=== PATIENT | male | born 1995 | race Caucasian/White ===

== ENCOUNTER 2017-05-20 00:13 | Emergency (ER) | payer OTHER ==
--- NOTE | 2017-05-20 02:25 | ED ---
Throat Pain/Nasal Congestion - HPI Summary HPI Summary: 21M presents with jaw pain after eating a burger. He states that his jaw occasionally pops. no history of TMJ. no dental pain. no fever or sore throat. pain is ache in nature. ibuprofen makes it better. has worst pain when is chewing. pain has only been for a day. no abdominal pain. states feels that lymph nodes are enlarged. no drooling. - History of Current Complaint Chief Complaint: EDGeneral Time Seen by Provider: 05/20/17 01:27 - Allergies/Home Medications Allergies/Adverse Reactions: Allergies Allergy/AdvReac Type Severity Reaction Status Date / Time No Known Allergies Allergy Verified 05/20/17 00:18 PMH/Surg Hx/FS Hx/Imm Hx Endocrine/Hematology History: Denies: Hx Anticoagulant Therapy Cardiovascular History: Denies: Hx Hypertension Infectious Disease History: No Infectious Disease History: Denies: Traveled Outside the [place] in Last 30 Days - Family History Known Family History: Negative: Cardiac Disease - Social History Alcohol Use: Occasionally Substance Use Type: Reports: Marijuana Substance Use Comment - Amount & Last Used: occasionally Smoking Status (MU): Never Smoked Tobacco Review of Systems Negative: Fever Positive: Other - jaw pain Negative: Chest Pain Negative: Shortness Of Breath All Other Systems Reviewed And Are Negative: Yes Physical Exam Triage Information Reviewed: Yes Vital Signs On Initial Exam: Initial Vitals Temp Pulse Resp BP Pulse Ox 99.0 F 87 12 144/93 100 05/20/17 00:14 05/20/17 00:14 05/20/17 00:14 05/20/17 00:14 05/20/17 00:14 Vital Signs Reviewed: Yes Appearance: Positive: Well-Appearing Skin: Positive: Warm, Dry Head/Face: Positive: Normal Head/Face Inspection Eyes: Positive: Normal, EOMI, DEDE, Conjunctiva Clear ENT: Positive: Normal ENT inspection, Pharynx normal, TMs normal, Other - tenderness over TMJ joint with movement Dental: Negative: Percussion Tenderness @, Gross Decay/Caries @, Dental Fracture @, Abscess @ Neck: Positive: Supple, Nontender, No Lymphadenopathy Respiratory/Lung Sounds: Positive: Clear to Auscultation, Breath Sounds Present Cardiovascular: Positive: Normal, RRR - Amanda Coma Scale Coma Scale Total: 15 Diagnostics - Vital Signs Vital Signs Temp Pulse Resp BP Pulse Ox 05/20/17 00:14 99.0 F 87 12 144/93 100 - Laboratory Lab Statement: Any lab studies that have been ordered have been reviewed, and results considered in the medical decision making process. EENT Course/Dx - Course Course Of Treatment: 21M presents with jaw pain after eating a burger. He states that his jaw occasionally pops. no history of TMJ. no dental pain. no fever or sore throat. pain is ache in nature. ibuprofen makes it better. has worst pain when is chewing. pain has only been for a day. no abdominal pain. states feels that lymph nodes are enlarged which they are not on exam. has pain when open jaw and hold tmj joint. no dental pain. explained symptoms likely due to TMJ. patient understands and agrees with plan. - Differential Diagnoses Differential Diagnoses: Dental Abscess, Dental Caries, Pharyngitis, Other - TMJ - Diagnoses Provider Diagnoses: Jaw pain Discharge - Discharge Plan Condition: Good Disposition: HOME Patient Education Materials: Temporomandibular Disorder (ED) Referrals: [facility] [Primary Care Provider] - Additional Instructions: Take ibuprofen or Tylenol every 6 hours for pain Avoid hard foods Return to ED if develop any new or worsening symptoms
[2017-05-20 03:09] VITALS: BP 125/86
== END 2017-05-20 02:42 | disposition home or self-care (01) ==
LOC: ED 00:13
DX: R68.84 Jaw pain (principal)
CPT/HCPCS: 99281